=== PATIENT | female | born 1990 | race Caucasian/White ===

== ENCOUNTER → 2020-05-24 | Outpatient (CLI) | payer OTHER | LOC: COL.RAD 07:16 | DX: M62.08 Separation of muscle (nontraumatic), other site (principal) ==

== ENCOUNTER → 2020-05-25 | Outpatient (CLI) | payer OTHER | LOC: COL.RAD 08:23 | DX: M62.08 Separation of muscle (nontraumatic), other site (principal); N85.8 Other specified noninflammatory disorders of uterus | CPT/HCPCS: Q9967 ==